=== PATIENT | male | born 1960 | race Caucasian/White ===

== ENCOUNTER → 2017-08-10 | Outpatient (CLI) | payer BC ==
--- NOTE | 2017-08-11 08:15 | Diagnostic Imaging Report ---
#[id number] - MGDXLT #MALE UNILATERAL LEFT DIGITAL DIAGNOSTIC MAMMOGRAM WITH CAD SHORT-TERM FOLLOW-UP: 08/10/2017 Comparison is made to exams dated: 10/12/2016 ultrasound, 10/12/2016 mammogram, 09/07/2013 ultrasound and 09/07/2013 mammogram - [facility]. Current study contains 3 films. Current study was also evaluated with a Computer Aided Detection (CAD) system. No significant masses, calcifications or other findings are seen in the breast. The subareolar glandular tissue is less prominent than compared to the prior study. IMPRESSION: BENIGN There is no mammographic evidence of malignancy. A 1 year screening mammogram is recommended. The patient will be notified by letter of the results. Jesus Hannah Jr., D.O. cw/:08/10/2017 13:14:54 Spout Worker: Jayde RAO(R)(M), [facility] letter sent: Compared to Prior B9 Mammogram BI-RADS: 2 Benign
--- NOTE | 2017-08-11 08:15 | Diagnostic Imaging Report ---
#[id number] - USBRECOMLT ULTRASOUND OF THE LEFT BREAST - SHORT-TERM FOLLOW-UP: 08/10/2017 Comparison is made to exams dated: 08/10/2017 mammogram, 10/12/2016 ultrasound, 10/12/2016 mammogram and 09/07/2013 ultrasound - [facility]. Color flow and real-time ultrasound were performed on the entire left breast with scanning in all four quadrants, retroareolar region and left axilla. The small lesion previously evaluated in the SubQ area in the retroareolar region is less prominent but still present with similar measurements. IMPRESSION: BENIGN There is no sonographic evidence of malignancy. No additional follow up required. Jesus Hannah Jr., D.O. cw/:08/10/2017 14:01:02 [employer]ri Business Agent: AYDEE RAO, [facility] letter sent: Normal Exam Ultrasound BI-RADS: 2 Benign
== END ==
LOC: MAMMO 08:32
PROVIDERS: ATTEND Family Medicine
DX: R92.8 Other abnormal and inconclusive findings on diagnostic imaging of breast (principal)